=== PATIENT | female | born 1970 | race African-American/Black ===

== ENCOUNTER 2017-05-19 16:12 | Emergency (ER) | payer OTHER ==
[2017-05-19] MEDS: DIPH,PERTUSS(ACELL),TET VAC/PF 0.5 ML DISP.SYRIN IM ONE (17:15)
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
[2017-05-19 18:06] VITALS: BP 132/68
== END 2017-05-19 17:26 | disposition home or self-care (01) ==
LOC: ED 16:12
DX: T21.22XA Burn of second degree of abdominal wall, initial encounter (principal); T25.212A Burn of second degree of left ankle, initial encounter; X58.XXXA Exposure to other specified factors, initial encounter; Y93.9 Activity, unspecified; Y99.9 Unspecified external cause status
CPT/HCPCS: 90471; 90715; 99283